=== PATIENT | female | born 2000 ===

== ENCOUNTER 2024-02-01 10:41 | Outpatient (CLI) ==
[~2024-02-01] VITALS: Ht 160 cm; Wt 82.6 kg
[2024-02-01 10:55] VITALS: BP 122/61
[2024-02-01] MEDS ORDERED: PRENTAB9 PO (10:57)
[2024-02-01] MEDS ORDERED: HOME MED LIST COMPLETE! XX SCH (11:10)
== END 2024-02-01 14:15 | disposition left against medical advice (07) ==
LOC: M LDO 10:41
PROVIDERS: ATTEND Obstetrics & Gynecology
DX: Z53.21 Procedure and treatment not carried out due to patient leaving prior to being seen by health care provider (principal)
CPT/HCPCS: 59025; G0463